=== PATIENT | male | born 1955 | race Asian ===

== ENCOUNTER 2019-07-27 19:13 | Emergency (ER) | payer MEDICARE, OTHER ==
[~2019-07-27] VITALS: Ht 172.7 cm; Wt 74.8 kg
[2019-07-27] MEDS ORDERED: ATOR20TA27 PO (19:21)
[2019-07-27] MEDS ORDERED: HYDR-4354 PO (19:21)
[2019-07-27] MEDS ORDERED: OMEP40CA13 PO (19:21)
--- NOTE | 2019-07-27 19:27 | NUR ---
Dr. Argueta at bedside for MSE.
[2019-07-27] MEDS ORDERED: ONDANSETRON ODT 4 MG TAB.RAPDIS SL ONE (19:30)
[2019-07-27] MEDS ORDERED: LIDOCAINE HCL 2% 20 ML VIAL TP ONE (19:30)
[2019-07-27] MEDS ORDERED: ONDANSETRON ODT 4 MG TAB.RAPDIS ONE (19:46)
--- NOTE | 2019-07-27 19:56 | NUR ---
Pt out of ER for CT.
[2019-07-27 19:59] LABS: BASOPHILS % (AUTO) 0.4 % (0.0-2.0); EOSINOPHILS # (AUTO) 0.1 K/uL (0.0-0.7); EOSINOPHILS % (AUTO) 0.5 % (0.0-7.0); HEMATOCRIT 44.4 % (36.7-47.1); HEMOGLOBIN 15.1 g/dL (12.5-16.3); LYMPHOCYTES # (AUTO) 1.1 K/uL (20.0-40.0); LYMPHOCYTES % (AUTO) 10.4 % (20.5-51.5); MEAN CORPUSCULAR HEMOGLOBIN 29.4 uug (23.8-33.4); MEAN CORPUSCULAR HGB CONC 34 g/dL (32.5-36.3); MEAN CORPUSCULAR VOLUME 86.6 fL (73.0-96.2); MONOCYTES # (AUTO) 0.6 K/uL (2.0-10.0); MONOCYTES % (AUTO) 6.2 % (0.0-11.0); NEUTROPHILS # (AUTO) 8.6 K/uL (1.8-8.9); NEUTROPHILS % (AUTO) 82.5 % (38.5-71.5); PLATELET COUNT (AUTO) 266 K/uL (152-348); RED BLOOD CELL COUNT(AUTO) 5.12 MIL/uL (4.06-5.63); WHITE BLOOD COUNT (AUTO) 10.4 K/uL (3.6-10.2)
[2019-07-27 20:05] LABS: POTASSIUM 4.7 mmol/L (3.5-5.1)
--- NOTE | 2019-07-27 20:07 | NUR ---
Pt back to ER from CT.
[2019-07-27] MEDS ORDERED: NEOMY/BACITRA/POLYMYXIN B OINT UD PACKET TP ONE (20:10)
[2019-07-27 20:18] VITALS: BP 125/72
--- NOTE | 2019-07-27 20:18 | NUR ---
Patient discharged to home in stable conditon. Written and verbal after care instructions given. Patient verbalizes understanding of instructions. PT ambulated out of ER with steady gait, no acute signs of distress, VSS, all belongings taken, to be driven home by family via private vehicle.
== END 2019-07-27 20:19 | disposition home or self-care (01) ==
LOC: ER 19:19
DX: S01.81XA Laceration without foreign body of other part of head, initial encounter (principal); K21.9 Gastro-esophageal reflux disease without esophagitis; E78.5 Hyperlipidemia, unspecified; R55 Syncope and collapse; Z79.899 Other long term (current) drug therapy; Z88.5 Allergy status to narcotic agent; X58.XXXA Exposure to other specified factors, initial encounter; Y93.89 Activity, other specified; Y92.89 Other specified places as the place of occurrence of the external cause; Y99.8 Other external cause status
CPT/HCPCS: 36415; 70030-TC; 70450; 71045; 85025; 85730; 93005; A4217; A4663; Q0162